=== PATIENT | female | born 1950 | race Caucasian/White ===

== ENCOUNTER → 2017-05-23 10:43 | Outpatient (CLI) | payer MEDICARE, OTHER, SELFPAY ==
[2017-05-23 11:30] VITALS: PULSE 106; PULSE 108; PULSE 110; PULSE 111; PULSE 112; PULSE 113; PULSE 114; PULSE 97; O2SAT 85; O2SAT 88; O2SAT 90; O2SAT 92; O2SAT 93
--- NOTE | 2017-05-23 11:35 | CPS ---
Pt began testing on RA. At 2 minutes SP02 85%. 2L NC continuous applied to pt. Pt rested and recovered to SPO2 92% on 2L continuous, duration of test finished. Patient began and ended test with with a dyspnea louis. scale rating of 3 which she stated is her normal.
--- NOTE | 2017-05-24 07:03 | WT_ITS ---
PSN 6 Minute Walk Test - 6 Minute Walk Test 6 Minute Walk Test: 6 Minute Walk Test PSN:6-Minute Walk Test Start: 05/23/17 11: 30 Freq: Status: Active Protocol: RESP.6MINW Document 05/23/17 11:30 SMB (Rec: 05/23/17 11:44 SMB [id number]) 6 Minute Walk Test Date Performed 05/23/17 Time Performed 11:05 Height 4 ft 11.5 in Weight: 68.039 kg Weight in Pounds 150.[address]: Vargas Colón Assistive device used: None Pre-test Oxygen Delivery Method Room Air Pulse Ox (%) 92 Pulse Rate (60-100 beats/min) 97 1st minute Oxygen Delivery Method Room Air Pulse Ox (%) 90 Pulse Rate (60-100 beats/min) 106 H 2nd minute Oxygen Delivery Method Room Air Pulse Ox (%) 85 Pulse Rate (60-100 beats/min) 114 H 3rd minute Oxygen Flow Rate (L/min) 2 Oxygen Delivery Method Nasal Cannula Pulse Ox (%) 92 Pulse Rate (60-100 beats/min) 111 H 4th minute Oxygen Flow Rate (L/min) 2 Oxygen Delivery Method Nasal Cannula Pulse Ox (%) 88 Pulse Rate (60-100 beats/min) 113 H 5th minute Oxygen Flow Rate (L/min) 2 Oxygen Delivery Method Nasal Cannula Pulse Ox (%) 90 Pulse Rate (60-100 beats/min) 110 H 6th minute Oxygen Flow Rate (L/min) 2 Oxygen Delivery Method Nasal Cannula Pulse Ox (%) 90 Pulse Rate (60-100 beats/min) 112 H Post-test Oxygen Delivery Method Room Air Pulse Ox (%) 93 Pulse Rate (60-100 beats/min) 108 H Dyspnea Louis Scale (0-10) 3 Exertion Louis Scale (6-20) 12 Full Laps Walked 11 Partial Lap, Number of Tiles Walked 18 Total Distance Walked (ft) 667 05/23/17 11:35 Cardiopulmonary Services by Brandee Arredondo Pt began testing on RA. At 2 minutes SP02 85%. 2L NC continuous applied to pt. Pt rested and recovered to SPO2 92% on 2L continuous, duration of test finished. Patient began and ended test with with a dyspnea louis. scale rating of 3 which she stated is her normal. Initialized on 05/23/17 11:35 - END OF NOTE - Interpretation Interpretation: The patient was able to ambulate 667 feet over the course of 6 minutes. The patient initially was 92% on room air, but desaturated in the second minute and required 2 L nasal cannula to finish ambulation. Some tachycardia was noted during testing. These findings are consistent with a respiratory limitation exercise tolerance. - Recommendations Recommendations: The patient requires no supplemental oxygen at rest, but should be using 2 L nasal cannula with activity.
== END ==
PROVIDERS: Family Provider Family Medicine; PCP Family Medicine; Visit Provider Internal Medicine Critical Care Medicine
DX: R00.0 Tachycardia, unspecified (principal)
CPT/HCPCS: 94618

== ENCOUNTER → 2017-09-10 12:48 | Outpatient (CLI) | payer MEDICARE, OTHER, SELFPAY ==
--- NOTE | 2017-09-10 12:53 | BI_ITS ---
MAMMOGRAPHY - BILATERAL SCREENING REASON FOR EXAM: Female, 66 years old. Routine annual screening examination. PERTINENT HISTORY: Non-contributory. TECHNIQUE: Digital bilateral breast cheryle (3D mammographic acquisition) in the CC and MLO projections. 2-D mediolateral oblique (MLO) and craniocaudad (CC) views of both breasts were obtained. CAD: Full Field Digital Mammography with Computer Added Detection was performed. COMPARISON: Comparison is made with prior study dated May 16, 2016 and August 03, 2012. FINDINGS: Breast Composition: The breasts are heterogeneously dense, which may obscure small masses. There are no dominant masses or suspicious calcifications. No other significant abnormalities are identified. There has been no significant change since the prior study. BI/SCREENING MAMM (CAD), BILAT IMPRESSION: Stable bilateral screening mammogram. Yearly follow-up mammogram recommended. (A) ASSESSMENT CATEGORY: BIRADS Category 1: Negative. A letter regarding these results will be sent to the patient by the facility within 30 days. Approximately 10% of breast cancers are not detected by mammography. A normal mammogram should not delay biopsy of a clinically suspicious abnormality. [id number] Electronically Signed: Marty Bobby MD at 13:54 EDT Tel [phone], Service support ,
== END ==
PROVIDERS: Family Provider Family Medicine; PCP Family Medicine; Visit Provider Family Medicine
DX: Z12.31 Encounter for screening mammogram for malignant neoplasm of breast (principal)
CPT/HCPCS: 77063; 77067

== ENCOUNTER → 2018-05-19 12:46 | Outpatient (CLI) | payer MEDICARE, OTHER, SELFPAY ==
[2018-02-25 13:11] VITALS: BMI 32.1
--- NOTE | 2018-05-20 06:41 | PFTCOMP_ITS ---
COMPLETE PULMONARY FUNCTION TEST INTERPRETATION Brief HPI: Patient is a 67 year old female, currently under the care of myself, who presents to [facility] for complete pulmonary function tests secondary to diagnosis of COPD. Respiratory therapist reports good effort and reproducible results. Interpretation: Forced expiration spirometry shows a very severe large airways obstructive ventilatory defect with an FEV1 of 31% predicted. There is no significant bronchodilator response by strict ATS criteria. Spirograms are of good quality and plateau slowly, indicating slowly emptying areas of the lungs. The respiratory flow volume loop shows decreased expiratory flow rates at all lung volumes consistent with airway obstruction. Lung volumes by body plethysmography show a normal total lung capacity at 4.28 L, 106% predicted. FRC and RV are elevated out of proportion. Lung volume measurements are consistent with air-trapping. Diffusion capacity by carbon monoxide is decreased at 44% predicted. The airway resistance is elevated. Compared to previous pulmonary function tests from 06/22/2015, there has been no significant change. Impression: Irreversible very severe large airways obstructive ventilatory defect resulting in air trapping and a symmetric reduction diffusing capacity consistent with advanced COPD.
== END ==
PROVIDERS: Family Provider Family Medicine; PCP Family Medicine; Referring Provider Nurse Practitioner Acute Care; Visit Provider Nurse Practitioner Acute Care
DX: J44.9 Chronic obstructive pulmonary disease, unspecified (principal)
CPT/HCPCS: 94060; 94726; 94729

== ENCOUNTER → 2018-12-23 10:17 | Outpatient (CLI) | payer MEDICARE, OTHER, SELFPAY ==
[2018-11-23 11:16] VITALS: BMI 32.5
--- NOTE | 2018-12-23 10:18 | BD_ITS ---
STUDY: DUAL ENERGY X-RAY ABSORPTIOMETRY / DXA REASON FOR EXAM: Female, 68 years old. The patient is postmenopausal. Loss of height. TECHNIQUE: Bone Mineral Density (BMD) measurements of lumbar spine and bilateral hips were obtained. COMPARISON: Comparison is made with prior study dated May 16, 2016. FINDINGS: Lumbar Spine (L1-L4): g/cm2 (0.789) / T-score (-3.3) / Z-score (-1.6) Findings are suggestive of osteoporosis with a high fracture risk. Increased thoracic kyphosis. Left Femur Total: g/cm2 (0.711) / T-score (-2.4) / Z-score (-0.9) Left Femoral Neck: g/cm2 (0.697) / T-score (-2.5) / Z-score (-0.8) Right Femur Total: g/cm2 (0.725) / T-score (-2.2) / Z-score (-0.8) Right Femoral Neck: g/cm2 (0.693) / T-score (-2.5) / Z-score (-0.8) The T-Scores on the most recent prior examination were: Lumbar Spine (L1-L4): There has been improvement of bone density since the previous examination. Left Femur Total: which represents an improvement of 5.5%. Right Femur Total: which represents a worsening of 2.9%. BD/Dexa Bone Density Study IMPRESSION: The patient is considered osteoporotic as outlined below according to World New Organization (WHO) criteria with a high fracture risk. There has been improvement of bone density since the previous examination. Reference Information: The T-score is the number of standard deviations above or below the standard which is normal for young adults at their peak bone mineral density. The World Health Organization (WHO) interprets the T-scores as follows: Above -1 Normal bone density Between -1 and -2.5 Osteopenia Equal to / or below -2.5 Osteoporosis As a practical clinical guideline, osteopenia may be graded as follows: Mild -1 through -1.5 Moderate -1.6 through -2.0 Severe -2.1 through -2.4 The Z-score is the number of standard deviations above or below age-matched controls. A Z-score of less than -1.5 would be considered abnormal. References: 1. NIH Osteoporosis and Related Bone Diseases http://www.osteo.org 2. International Society for Clinical Densitometry http://www.iscd.org 3. National Osteoporosis Foundation http://www.nof.org Electronically Signed: Marty Bobby, at 13:03 EDT , Service support ,
--- NOTE | 2018-12-23 10:19 | BI_ITS ---
MAMMOGRAPHY - BILATERAL SCREENING REASON FOR EXAM: Female, 68 years old. Routine annual screening examination. PERTINENT HISTORY: Non-contributory. TECHNIQUE: Digital bilateral breast fili (3D mammographic acquisition) in the CC and MLO projections. 2-D mediolateral oblique (MLO) and craniocaudad (CC) views of both breasts were obtained. CAD: Full Field Digital Mammography with Computer Added Detection was performed. COMPARISON: Comparison is made with prior study dated September 10, 2017 and May 16, 2016. FINDINGS: Breast Composition: The breasts are heterogeneously dense, which may obscure small masses. There are no dominant masses or suspicious calcifications. No other significant abnormalities are identified. There has been no significant change since the prior study. BI/SCREEN MAMM (CAD) W/FILI BILAT IMPRESSION: Stable bilateral screening mammogram. Yearly follow-up mammogram recommended. (A) ASSESSMENT CATEGORY: BIRADS Category 1: Negative. A letter regarding these results will be sent to the patient by the facility within 30 days. Approximately 10% of breast cancers are not detected by mammography. A normal mammogram should not delay biopsy of a clinically suspicious abnormality. [id number] Electronically Signed: Marty Bobby, at 8:45 EDT , Service support ,
== END ==
PROVIDERS: Family Provider Family Medicine; PCP Family Medicine; Referring Provider Family Medicine; Visit Provider Family Medicine
DX: Z12.31 Encounter for screening mammogram for malignant neoplasm of breast (principal); Z78.0 Asymptomatic menopausal state; M81.0 Age-related osteoporosis without current pathological fracture
CPT/HCPCS: 77063; 77067; 77080

== ENCOUNTER → 2019-05-25 | Outpatient (CLI) | payer MEDICARE, OTHER, SELFPAY ==
[2019-05-17 10:34] VITALS: BMI 32.5
[2019-05-25 10:00] VITALS: PULSE 100; PULSE 103; PULSE 85; PULSE 86; PULSE 98; PULSE 99; O2SAT 83; O2SAT 90; O2SAT 91; O2SAT 92; O2SAT 94; O2SAT 96
--- NOTE | 2019-05-25 10:36 | CPS ---
Pt came in on 2 lpm pulse dose oxygen. Room air sitting pulse ox 94%. Walk was started while pt on room air. At the 2 min time pt had dropped to 83%. Pt was placed back on 2 lpm pulse dose. Pt recovered to 95%. The remainder of walk was on 2 lpm pulse dose oxygen.
--- NOTE | 2019-05-26 13:53 | WT_ITS ---
PSN 6 Minute Walk Test - 6 Minute Walk Test 6 Minute Walk Test: 6 Minute Walk Test PSN:6-Minute Walk Test Start: 05/25/19 10:31 Freq: Status: Active Protocol: RESP.6MINW Document 05/25/19 10:00 [facility] (Rec: 05/25/19 10:41 [facility] [id number]) 6 Minute Walk Test Date Performed 05/25/19 Time Performed 10:00 Height 4 ft 11 in Weight: 164 lb Weight in Pounds 164.[address]: Vargas Colón Assistive device used: None Pre-test Oxygen Delivery Method Room Air Pulse Ox (%) 94 Pulse Rate (60-100 beats/min) 85 Dyspnea Gaurav Scale (0-10) 0 Exertion Gaurav Scale (6-20) 6 1st minute Oxygen Delivery Method Room Air Pulse Ox (%) 91 Pulse Rate (60-100 beats/min) 98 2nd minute Oxygen Delivery Method Room Air Pulse Ox (%) 83 Pulse Rate (60-100 beats/min) 98 3rd minute Oxygen Flow Rate (L/min) (L/min) 2 Oxygen Delivery Method Nasal Cannula Pulse Ox (%) 94 Pulse Rate (60-100 beats/min) 100 4th minute Oxygen Flow Rate (L/min) (L/min) 2 Oxygen Delivery Method Nasal Cannula Pulse Ox (%) 92 Pulse Rate (60-100 beats/min) 103 H 5th minute Oxygen Flow Rate (L/min) (L/min) 2 Oxygen Delivery Method Nasal Cannula Pulse Ox (%) 96 Pulse Rate (60-100 beats/min) 99 6th minute Oxygen Flow Rate (L/min) (L/min) 2 Oxygen Delivery Method Nasal Cannula Pulse Ox (%) 90 Pulse Rate (60-100 beats/min) 100 Dyspnea Gaurav Scale (0-10) 3 Exertion Gaurav Scale (6-20) 8 Post-test Oxygen Flow Rate (L/min) (L/min) 2 Oxygen Delivery Method Nasal Cannula Pulse Ox (%) 96 Pulse Rate (60-100 beats/min) 86 Full Laps Walked 16 Partial Lap, Number of Tiles Walked 0 Total Distance Walked (ft) 944 05/25/19 10:36 Cardiopulmonary Services by Kary Sarah Pt came in on 2 lpm pulse dose oxygen. Room air sitting pulse ox 94%. Walk was started while pt on room air. At the 2 min time pt had dropped to 83%. Pt was placed back on 2 lpm pulse dose. Pt recovered to 95%. The remainder of walk was on 2 lpm pulse dose oxygen. Initialized on 05/25/19 10:36 - END OF NOTE - Interpretation Interpretation: The patient ambulated 944 feet over the course of 6 minutes beginning on room air without assistive devices. Pretesting oxygen saturation was noted to be 94% on room air. With ambulation, the candy oxygen saturation was 83%. 2 L/min of pulse dose supplemental oxygen was applied and the patient was able to complete the remainder of the test while maintaining appropriate oxygen saturations. - Recommendations Recommendations: 2 L/min of pulse dose supplemental oxygen should be utilized at all times with exertion.
== END | disposition home or self-care (01) ==
LOC: PSN 09:45
PROVIDERS: PCP Family Medicine; Referring Provider Nurse Practitioner Acute Care; Visit Provider Nurse Practitioner Acute Care
DX: J44.9 Chronic obstructive pulmonary disease, unspecified (principal)
CPT/HCPCS: 94618

== ENCOUNTER → 2021-04-03 12:42 | Outpatient (CLI) | payer MEDICARE, OTHER, SELFPAY ==
--- NOTE | 2021-04-03 12:50 | ECHOD_ITS ---
Reason For Study: Cardiomyopathy Procedure This was a 2D Doppler, Color Flow transthoracic echocardiogram. The study was technically difficult. Exam performed in department. Left Ventricle Normal LV size. Left ventricular systolic function is normal. The estimated ejection fraction is 55 %. Diastolic function is indeterminate. No regional wall motion abnormalities noted. Right Ventricle Normal RV size. Normal systolic function. Atria Normal left atrium. Normal right atrium. No doppler evidence for ASD. Mitral Valve There is no mitral annular calcification. Normal mitral valve. Mild (1+) mitral valve insufficiency. Tricuspid Valve Normal tricuspid valve. Trivial tricuspid valve insufficiency. Unable to estimate RV systolic pressure/pulmonary artery pressure due to technically difficult study. Aortic Valve Trisinus/trileaflet aortic valve. Normal aortic valve. Pulmonic Valve The pulmonic valve is not well visualized. Great Vessels The aortic root is not well visualized. Pericardium/Pleural No pericardial effusion. MMode/2D Measurements & Calculations LVIDd: 4.3 cm IVSd: 0.90 cm LA dimension: 3.4 cm LVIDs: 3.4 cm LVPWd: 0.95 cm RVDd: 2.9 cm FS: 21.8 % LAV(MOD-bp): 34.3 ml LA A4 area: 12.4 cm2 RA A4 area: 11.2 cm2 LAV(MOD-bp) Indexed: 20.0 ml/m2 LAV(MOD-sp2): 35.3 ml LAV(MOD-sp4): 29.5 ml Time Measurements MV dec time: 0.30 sec Doppler Measurements & Calculations MV E max nicola: 69.0 cm/sec Lat Peak E' Nicola: 5.6 cm/sec Med Peak E' Nicola: 5.1 cm/sec MV A max nicola: 96.5 cm/sec E/E' lat: 12.4 E/E' med: 13.5 MV E/A: 0.72 MV V2 max: 95.4 cm/sec MV P1/2t max nicola: 75.5 cm/sec Ao V2 max: 110.2 cm/sec MV max P.6 mmHg MV P1/2t: 88.1 msec Ao max P.9 mmHg MV V2 mean: 55.0 cm/sec MV dec slope: 250.9 cm/sec2 MV mean P.4 mmHg MVA(P1/2t): 2.5 cm2 MV V2 VTI: 24.2 cm LV V1 max: 85.7 cm/sec PA V2 max: 87.6 cm/sec LV V1 max P.9 mmHg ECHO/Echo Complete Interpretation Summary The study was technically difficult. Left ventricular systolic function is normal. The estimated ejection fraction is 55 %. Mild (1+) mitral valve insufficiency. Trivial tricuspid valve insufficiency. Unable to estimate RV systolic pressure/pulmonary artery pressure due to techni tor difficult study. Diastolic function is indeterminate. Ordering Physician: Efe Avilez Referring Physician: Danny Quintanilla Performed By: Jose Grimes RCS
== END ==
PROVIDERS: PCP Family Medicine; Referring Provider Internal Medicine Cardiovascular Disease; Visit Provider Internal Medicine Cardiovascular Disease
DX: I42.8 Other cardiomyopathies (principal)
CPT/HCPCS: 93306

== ENCOUNTER → 2021-11-20 | Outpatient (CLI) | payer MEDICARE, OTHER, SELFPAY ==
--- NOTE | 2021-11-20 11:07 | RAD_ITS ---
STUDY: X-RAY - LEFT HAND, ATTENTION THUMB REASON FOR EXAM: Pain around the thumb after a pop on Friday. TECHNIQUE: 3 view(s) of the finger were obtained. COMPARISON: None. FINDINGS: There is osteopenia. Normal carpometacarpal joint. Normal metacarpal. Normal metacarpophalangeal joint. Normal proximal phalanx. Normal distal phalanx. There are small marginal osteophytes and joint space narrowing of the interphalangeal joint. 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 Electronically Signed: Reji Gutierrez MD at 11:59 EDT ,
--- NOTE | 2021-11-20 11:07 | RAD_ITS ---
STUDY: X-RAY - LEFT WRIST REASON FOR EXAM: Pain around the thumb after a pop on Friday. TECHNIQUE: 3 view(s) of the wrist were obtained. COMPARISON: None. FINDINGS: There is osteopenia. Normal visualized distal radius and ulna. Normal radiocarpal articulation. Normal distal radioulnar articulation. Normal carpal bones. Normal carpal articulations. Normal carpometacarpal articulation of the thumb. Normal second through fifth carpometacarpal articulations. Normal visualized metacarpal bones. The soft tissue structures are unremarkable. RAD/Wrist min 3 Views IMPRESSION: Osteopenia. Otherwise, unremarkable x-ray examination of the left wrist. Electronically Signed: Reji Gutierrez MD at 13:21 EDT ,
== END | disposition home or self-care (01) ==
LOC: MTRAD 10:55
PROVIDERS: PCP Family Medicine; Referring Provider Nurse Practitioner Family; Visit Provider Nurse Practitioner Family
DX: M25.532 Pain in left wrist (principal)
CPT/HCPCS: 73110; 73140

== ENCOUNTER → 2022-01-14 | Outpatient (CLI) | payer MEDICARE, OTHER, SELFPAY ==
--- NOTE | 2022-01-15 08:50 | PFT ---
INTRODUCTION: The patient is a 71-year-old female that presents for pulmonary function studies secondary to a diagnosis of COPD. Respiratory therapy reported good patient effort. Bronchodilators were used during testing. INTERPRETATION: Forced expiration spirometry demonstrates the presence of a severe large airways obstructive ventilatory defect. There was no significant response to aerosolized bronchodilators. Spirograms are of fair quality but do not plateau indicating slow emptying of the lungs. Body plethysmography was performed and revealed an elevated TLC and RV, indicative of underlying hyperinflation and air trapping. Diffusing capacity by single breath CO is reduced at 45% of predicted. IMPRESSION: Irreversible severe large airways obstructive ventilatory defect with associated hyperinflation, air trapping and symmetric reduction in diffusing capacity.
== END | disposition home or self-care (01) ==
LOC: PSN 08:11
PROVIDERS: PCP Family Medicine; Referring Provider Internal Medicine Critical Care Medicine; Visit Provider Internal Medicine Critical Care Medicine
DX: J44.9 Chronic obstructive pulmonary disease, unspecified (principal)
CPT/HCPCS: 94060; 94726; 94729

== ENCOUNTER 2022-04-30 07:38 | Day surgery (SDC) | payer MEDICARE, OTHER, SELFPAY ==
[2022-04-30] VITALS (8 sets, daily range): BP systolic 102–113; BP diastolic 49–71; PULSE 97–102; RESP 18–20; TEMP 36.5–37.2; O2SAT 99–100; BMI 34.2
[2022-04-30] MEDS: Lactated Ringers 1,000 ML 15 ML IV (08:04)
--- NOTE | 2022-04-30 08:35 | PCM.HP.BLA ---
History and Physical Date of Admission: 04/30/22 Intake Vital Signs ? 03/28/2213:44 Height 4 ft 11 in Weight: 171 lb 6 oz BMI 34.6 BP 129/75 H Blood Pressure Location Rt brachial Position Sitting Respiration 22 H Pulse 98 Pulse Source NIBP Temp 97.8 F Temp Source Temporal Pulse Oximetry (%) 94 Oxygen Delivery Method nasal canula Oxygen Flow Rate (L/min) 3 Intake Visit Reasons:?POSITICE COLOGUARD Chief Complaint: positive cologuard [employer] Ac[employer] Program Manager Required: No Is patient in pain?: No Allergies doxycycline Allergy (Mild, Verified 03/28/22 13:45) Diarrhea Medications aspirin 81 mg chewable tablet 81 mg PO DAILY@0800 06/19/15 [History Confirmed 03/28/22] cholecalciferol (vitamin D3) 25 mcg (1,000 unit) tablet 1,000 unit PO QDAY 11/24/17 [History Confirmed 03/28/22] albuterol sulfate 90 mcg/actuation aerosol inhaler 2 puff inhalation Q4H PRN PRN shortness of breath or wheezing #18 grams 04/12/20 [Rx Confirmed 03/28/22] fluticasone 500 mcg-salmeterol 50 mcg/dose blistr powdr for inhalation (Advair Diskus) 1 inh inhalation BID #60 ea 01/29/22 [Rx Confirmed 03/28/22] tiotropium bromide 2.5 mcg/actuation mist for inhalation (Spiriva Respimat) 2 puff inhalation QDAY #4 grams 01/29/22 [Rx Confirmed 03/28/22] carvedilol 12.5 mg tablet 12.5 mg PO BID #180 tabs 03/19/22 [Rx Confirmed 03/28/22] furosemide 40 mg tablet (Lasix) 20 mg PO DAILY PRN edema #30 tabs 03/19/22 [Rx Confirmed 03/28/22] losartan 25 mg tablet (Cozaar) 25 mg PO QDAY #90 tabs 03/19/22 [Rx Confirmed 03/28/22] Is last menstrual period known: No Post menopausal: Yes Patient : No PFSH Medical History? Cardiomyopathy Chronic hypoxemic respiratory failure Chronic respiratory failure with hypoxia COPD (chronic obstructive pulmonary disease) Hyperlipidemia Near syncope Nonischemic cardiomyopathy Stage 4 very severe COPD by GOLD classification Thoracic kyphosis Surgical History? H/O: hysterectomy History of appendectomy History of left heart catheterization (LHC) Family History? Father CAD (coronary artery disease)Mother CAD (coronary artery disease)Brother CAD (coronary artery disease)Brother?? CardiomyopathyOther Stage 4 very severe COPD by GOLD classification Social History? Smoking Status:? Former smoker quit date: 04/14/04 pack-years: 34 Tobacco: How many years used:? 34 how long ago did patient quit smoking:? 13 alcohol intake:? current alcohol intake frequency: holidays/special occasions only Alcohol type: wine substance use type:? does not use caffeine:? Yes Type: coffee Number of servings: 3 what type of physical activity do you participate in:? none seatbelt use:? always do you feel safe at home:? Yes HPI HPI HPI: Patient is a 71-year-old female here with a positive Cologuard test.? She denies any blood in her stool or abdominal pain.? She is never had a colonoscopy in the past.? She had a negative Cologuard 2 years ago. ROS General General: Yes weight change and fatigue; No appetite, colon cancer, breast cancer or weakness HEENT HEENT: Yes swollen glands; No difficulty swallowing, eye injury, eye surgery or hoarseness Endo Endocrine: No thyroid disease, diabetes mellitus, thyroid cancer, Hair loss, heat intolerance or cold intolerance Musc Musculoskeletal: Yes back problems and arthritis; No rheumatoid arthritis, gout or joint pain Cardio Cardiovascular: No murmur, pacemaker, heart disease, atrial fibrillation, high blood pressure, heart attack, heart stent, palpitations, shortness of breat with exertion or chest pain Psych Psychiatric: No depression, anxiety or hearing voices Resp Respiratory: Yes shortness of breath, No sleep apnea, No cough, Yes COPD, No asthma, No emphysema and No wheezing Gastro Gastrointestinal: No abdominal pain, No nausea or vomiting, No diarrhea, No constipation, No blood in stool, No acid reflux, No hemorrhoids, No ulcers, No gallbladder problem and No black,tarry stools Shawn Hematologic: No blood thinners, No blood disorders, No bleeding, No anemia and No blood clots Neuro Neurologic: No weakness Exam Const General: cooperative Orientation: alert and oriented x3 HENMT Head: normal to inspection Neck Neck: normal visual inspection and full ROM Chest Chest palpation & inspection: normal inspection of the chest Resp Effort & Inspection: normal respiratory effort Auscultation: clear to auscultation bilaterally Cardio Rate: regular rate Rhythm: regular rhythm GI Inspection: non-distended Palpation: soft and nontender Skin General: no rashes or lesions noted Neuro General: patient alert and patient oriented x3 Extrem General: full ROM Psych Appearance: grossly normal Mental Status: mental status grossly normal Assessment and Plan Assessment and Plan (1) Positive colorectal cancer screening using Cologuard test: ?Status:?Acute ?Plan: The patient had a positive Cologuard and requires colonoscopy for follow-up.? She has never had a colonoscopy in the past. I explained endoscopy in detail to the patient.? I explained the risks including but not limited to stroke or heart attack with anesthesia, perforation of the GI tract, bleeding, infection.? I explained that any of these could necessitate further emergency surgery.? The patient understands and all questions were answered sufficiently.? The patient wishes to proceed with procedure. Rodrigo Brar MD Pager: [facility] [address] [place] [address], [address] [place] [address] Office: I have examined the patient and the H&P has been reviewed. There are no clinical changes since date of exam.
--- NOTE | 2022-04-30 09:08 | OP.COLON_ITS ---
Patient Name: Rosa Isela Wilson Procedure Date: 04/30/2022 8:39 AM Date of : 1950 Age: 71 Procedure: Colonoscopy Indications: Positive Cologuard test Providers: Rodrigo Brar MD Referring MD: Rodrigo Brar MD Medicines: Monitored Anesthesia Care Patient Profile: This is a 71 year old female. Refer to note in patient chart for documentation of history and physical. Last Colonoscopy: none. The patient's first colonoscopy is today. Complications: No immediate complications. Procedure: Pre-Anesthesia Assessment: - Prior to the procedure, a History and Physical was performed, and patient medications and allergies were reviewed. The patient's tolerance of previous anesthesia was also reviewed. The risks and benefits of the procedure and the sedation options and risks were discussed with the patient. All questions were answered, and informed consent was obtained. Prior Anticoagulants: The patient has taken no previous anticoagulant or antiplatelet agents. After reviewing the risks and benefits, the patient was deemed in satisfactory condition to undergo the procedure. After I obtained informed consent, the scope was passed under direct vision. Throughout the procedure, the patient's blood pressure, pulse, and oxygen saturations were monitored continuously. The Colonoscope was introduced through the anus and advanced to the sigmoid colon. The colonoscopy was extremely difficult due to restricted mobility of the colon. The patient tolerated the procedure well. The quality of the bowel preparation was good. Scope In: 8:50:43 AM Scope Out: 9:00:35 AM Total Procedure Duration Time 0 hours 9 minutes 52 seconds Findings: Impression: - No specimens collected. Recommendation: - Discharge patient to home. - Resume previous diet. - Continue present medications. - Repeat colonoscopy in 6 months because the examination was incomplete. - Return to GI office. Procedure Code(s): --- Professional --- 27884, 53, Colonoscopy, flexible; diagnostic, including collection of specimen(s) by brushing or washing, when performed (separate procedure) Diagnosis Code(s): --- Professional --- R19.5, Other fecal abnormalities CPT copyright 2017 [employer]. All rights reserved. The codes documented in this report are preliminary and upon paint mixer machine review may be revised to meet current compliance requirements. Rodrigo Brar MD 04/30/2022 9:07:41 AM This report has been signed electronically. Number of Addenda: 0 Note Initiated On: 04/30/2022 8:39 AM
--- NOTE | 2022-04-30 09:09 | OP.CCLET_ITS ---
04/30/2022 Paulino Quintanilla [address] [place] [address] Re : Colonoscopy procedure for Rosa Isela Wilson Dear Dr. Quintanilla This procedure was performed on Saturday, April 30, 2022. My impressions and recommendations are as follows: Impressions : - No specimens collected. Recommendations : - Discharge patient to home. - Resume previous diet. - Continue present medications. - Repeat colonoscopy in 6 months because the examination was incomplete. - Return to GI office. My findings are described in the full procedure note, which is enclosed. If I can be of further assistance, please feel free to contact me at Doctor phone number(s): , Work: . Sincerely, Rodrigo Brar MD 04/30/2022 9:07:41 AM This report has been signed electronically.
--- NOTE | 2022-04-30 13:33 | RAD_ITS ---
STUDY: BARIUM ENEMA. REASON FOR EXAM: Female, 71 years old. Unable to get past sigmoid on scope FLUOROSCOPY TIME (if supplied): ( 1 minute and 5 seconds. ) minutes/seconds. 13 images were obtained. TECHNIQUE: A hvac estimator view was obtained. Following this, barium was introduced retrograde through the rectum. The entire colon was opacified. COMPARISON: None. FINDINGS: There is evidence of sigmoid diverticulosis. No evidence of sigmoid diverticulitis. There is redundancy of the sigmoid colon. There is no evidence of obstruction to the antegrade or retrograde flow of barium. RAD/Barium Enema No Air Cont IMPRESSION: Redundancy of the sigmoid colon. Sigmoid diverticulosis without evidence of diverticulitis at this time. Electronically Signed: Marty Bobby MD at 14:41 EST ,
== END 2022-04-30 10:14 | disposition home or self-care (01) ==
LOC: EN 07:39 → AC 07:40
PROVIDERS: PCP Family Medicine; Referring Provider Surgery; Visit Provider Surgery
PROC: 0DJD8ZZ Inspection of Lower Intestinal Tract, Via Natural or Artificial Opening Endoscopic (ICD-10-PCS; CPT 45378; principal; 2022-04-30 08:40)
DX: R19.5 Other fecal abnormalities (principal); J44.9 Chronic obstructive pulmonary disease, unspecified; I42.8 Other cardiomyopathies; Z78.0 Asymptomatic menopausal state; E78.5 Hyperlipidemia, unspecified; Z79.82 Long term (current) use of aspirin; Z79.899 Other long term (current) drug therapy; Z87.891 Personal history of nicotine dependence
CPT/HCPCS: 45330; 74270; J7120; J2405

== ENCOUNTER → 2023-08-19 | Outpatient (CLI) | payer MEDICARE, OTHER, SELFPAY ==
--- NOTE | 2023-08-19 14:08 | BI_ITS ---
MAMMOGRAPHY - BILATERAL SCREENING REASON FOR EXAM: Female, 72 years old. Routine annual screening examination. PERTINENT HISTORY: Non-contributory. TECHNIQUE: Digital bilateral breast fili (3D mammographic acquisition) in the CC and MLO projections. 2-D mediolateral oblique (MLO) and craniocaudad (CC) views of both breasts were obtained. CAD: Full Field Digital Mammography with Computer Added Detection was performed. COMPARISON: Comparison is made with prior study dated December 23, 2018 and September 10, 2017. FINDINGS: Breast Composition: There are scattered areas of fibroglandular density. There are no dominant masses or suspicious calcifications. No other significant abnormalities are identified. There has been no significant change since the prior study. BI/SCRN MAMM (CAD)W/FILI BILAT IMPRESSION: Stable bilateral screening mammogram. Yearly follow-up mammogram recommended. (A) ASSESSMENT CATEGORY: BIRADS Category 1: Negative. A letter regarding these results will be sent to the patient by the facility within 30 days. Approximately 10% of breast cancers are not detected by mammography. A normal mammogram should not delay biopsy of a clinically suspicious abnormality. [id number] Electronically Signed: Marty Bobby MD at 15:14 EDT ,
--- NOTE | 2023-08-19 14:14 | BD_ITS ---
STUDY: DUAL ENERGY X-RAY ABSORPTIOMETRY / DXA REASON FOR EXAM: Female, 72 years old. [id number] TECHNIQUE: Bone Mineral Density (BMD) measurements of lumbar spine and bilateral hips were obtained. COMPARISON: Comparison is made with prior study dated December 23, 2018. FINDINGS: Lumbar Spine (L1-L4): g/cm2 (0.654) / T-score (-3.6) / Z-score (-1.2) Findings are suggestive of osteoporosis with a high fracture risk. Left Femur Total: g/cm2 (0.667) / T-score (-2.3) / Z-score (-0.5) Left Femoral Neck: g/cm2 (0.558) / T-score (-2.6) / Z-score (-0.6) Right Femur Total: g/cm2 (0.656) / T-score (-2.3) / Z-score (-0.6) Right Femoral Neck: g/cm2 (0.568) / T-score (-2.5) / Z-score (-0.5) The T-Scores on the most recent prior examination were: Lumbar Spine (L1-L4): There has been worsening of bone density since the previous examination. Left Femur Total: which represents an improvement of 2%. Right Femur Total: which represents a worsening of 1.7%. BD/Dexa Bone Density Study IMPRESSION: The patient is considered osteoporotic as outlined below according to World New Organization (WHO) criteria with a high fracture risk. There has been worsening of bone density since the previous examination. Reference Information: The T-score is the number of standard deviations above or below the standard which is normal for young adults at their peak bone mineral density. The World Health Organization (WHO) interprets the T-scores as follows: Above -1 Normal bone density Between -1 and -2.5 Osteopenia Equal to / or below -2.5 Osteoporosis As a practical clinical guideline, osteopenia may be graded as follows: Mild -1 through -1.5 Moderate -1.6 through -2.0 Severe -2.1 through -2.4 The Z-score is the number of standard deviations above or below age-matched controls. A Z-score of less than -1.5 would be considered abnormal. References: 1. NIH Osteoporosis and Related Bone Diseases www osteo.org 2. International Society for Clinical Densitometry www iscd.org 3. National Osteoporosis Foundation www nof.org Electronically Signed: Marty Bobby MD at 10:00 EDT ,
== END | disposition home or self-care (01) ==
LOC: OPBD 14:07
PROVIDERS: PCP Family Medicine; Referring Provider Family Medicine; Visit Provider Family Medicine
DX: Z00.00 Encounter for general adult medical examination without abnormal findings (principal); Z12.31 Encounter for screening mammogram for malignant neoplasm of breast; Z78.0 Asymptomatic menopausal state
CPT/HCPCS: 77063; 77067; 77080

== ENCOUNTER → 2023-11-21 | Outpatient (CLI) | payer MEDICARE, OTHER, SELFPAY ==
[2023-11-21 12:26] LABS: Absolute Lymphocyte Count 1.69 X10^3/uL (0.83-4.51); Absolute Neutrophil Count 5.3 X10^3/uL (2.0-7.7); Basophil# 0.07 X10^3/uL; Basophil% 0.9 % (0-1); Eosinophil# 0.19 X10^3/uL; Eosinophils% 2.3 % (0-5); Hematocrit 34.3 % (37-47); Hemoglobin 10.5 g/dL (12.0-15.0); Lymphocyte # 1.69 X10^3/ul (0.83-4.51); Lymphocyte % 20.8 % (19-41); Mean Corp Hgb Conc 30.6 g/dL (32-36); Mean Corpuscular Hgb 28.8 pg (27.0-32.0); Mean Platelet Vol. 9.7 fl (6.2-12.0); Monocyte# 0.81 X10^3/uL; NRBC Flagged by Analyzer 0 % (0-5); Neutrophil # 5.33 X10^3/uL (2.7-7.7); Neutrophil % 65.6 % (47-70); Platelet Count 279 K/mm3 (150-450); RBC Distribution Width CV 13.5 % (11.6-14.6); RBC Distribution Width SD 46.4 fl (35.1-43.9); Red Blood Count 3.65 M/mm3 (4.2-5.4); White Blood Count 8.1 K/mm3 (4.4-11.0)
[2023-11-21 13:21] LABS: ALB/GLOB Ratio 0.8 RATIO (0.9-2.4); AST(SGOT) 25 U/L (15-37); Alanine Aminotransfer ALT/SGPT 26 U/L (13-56); Albumin, Serum 3.5 g/dL (3.2-5.0); Alkaline Phosphatase 101 U/L (45-117); Anion Gap 7 (5-15); BUN 22 mg/dL (7-18); BUN/Creat Ratio 22.7 RATIO (10-20); Calcium,Total 9.5 mg/dL (8.5-10.1); Chloride 99 mmol/L (98-107); Cholesterol 212 mg/dL (200); Creatinine, Serum 0.97 mg/dL (0.55-1.02); EST Glomerular Filtration Rate 60 mL/min (>60); Est Glom Filt Rate - Afr Amer 72 mL/min (>60); Globulin 4.6 g/dL (2.2-4.2); Glucose 142 mg/dL (74-106); High Density Lipoprotein 88 mg/dL; Potassium 4.4 mmol/L (3.5-5.1); Protein, Total 8.1 g/dL (6.4-8.2); Sodium Level 137 mmol/L (136-145); Triglycerides 71 mg/dL; Very Low Density Lipoprotein 14 mg/dL (5-40)
== END | disposition home or self-care (01) ==
LOC: LAB 11:52
PROVIDERS: PCP Family Medicine; Referring Provider Physician Assistant Medical; Visit Provider Physician Assistant Medical
DX: R06.02 Shortness of breath (principal); I42.8 Other cardiomyopathies; E78.5 Hyperlipidemia, unspecified; R53.83 Other fatigue
CPT/HCPCS: 36415; 80053; 80061; 84443; 85025

== ENCOUNTER → 2023-12-17 | Outpatient (CLI) | payer MEDICARE, OTHER, SELFPAY | END | disposition home or self-care (01) | LOC: LABSPEC 13:15 | PROVIDERS: PCP Family Medicine; Referring Provider Nurse Practitioner Family; Visit Provider Nurse Practitioner Family | DX: L30.9 Dermatitis, unspecified (principal) | CPT/HCPCS: 87070; 87077; 87186; 87205 ==

== ENCOUNTER → 2024-01-08 | Outpatient (CLI) | payer MEDICARE, OTHER, SELFPAY ==
[2024-01-08 12:34] LABS: Absolute Lymphocyte Count 1.66 X10^3/uL (0.83-4.51); Absolute Neutrophil Count 4.9 X10^3/uL (2.0-7.7); Basophil# 0.05 X10^3/uL; Basophil% 0.7 % (0-1); Eosinophil# 0.25 X10^3/uL; Eosinophils% 3.3 % (0-5); Hematocrit 35.6 % (37-47); Hemoglobin 10.8 g/dL (12.0-15.0); Lymphocyte # 1.66 X10^3/ul (0.83-4.51); Lymphocyte % 21.6 % (19-41); Mean Corp Hgb Conc 30.3 g/dL (32-36); Mean Corpuscular Hgb 28.7 pg (27.0-32.0); Mean Corpuscular Volume 94.7 fL (81-99); Mean Platelet Vol. 10.9 fl (6.2-12.0); Monocyte# 0.75 X10^3/uL; Monocyte% 9.8 % (0-10); NRBC Flagged by Analyzer 0 % (0-5); Neutrophil # 4.94 X10^3/uL (2.7-7.7); Neutrophil % 64.3 % (47-70); POSITIVE COUNT YES; RBC Distribution Width CV 13.8 % (11.6-14.6); RBC Distribution Width SD 47.7 fl (35.1-43.9); Red Blood Count 3.76 M/mm3 (4.2-5.4); White Blood Count 7.7 K/mm3 (4.4-11.0)
[2024-01-08 12:55] LABS: AST(SGOT) 23 U/L (15-37); Alanine Aminotransfer ALT/SGPT 25 U/L (13-56); Albumin, Serum 3.6 g/dL (3.2-5.0); Alkaline Phosphatase 94 U/L (45-117); Bilirubin, Direct 0.09 mg/dL (0.00-0.30); Globulin 4.5 g/dL (2.2-4.2); Protein, Total 8.1 g/dL (6.4-8.2)
[2024-01-08 13:10] LABS: Differential Indicated SCAN CRITERIA MET
[2024-01-08 13:11] LABS: Platelet Estimate ADEQUATE (ADEQ)
[2024-01-08 13:35] LABS: Hepatitis B Surface Antibody Non-Reactive; Hepatitis B Surface Antigen Non-Reactive (Nonreactive); Hepatitis C Antibody Non-Reactive (Nonreactive)
[2024-01-12 13:08] LABS: Hepatitis B Core AB IgM Negative (Negative); QNTFERON TB Mitogen Value > 10.00 IU/mL (.); QNTFERON TB Nil Value 0 IU/mL (.); QNTFERON TB1+ Ag Value 0 IU/mL (.); QNTFERON TB2+ Ag Value 0.03 IU/mL (.); QNTIFERON TB Positive Criteria Negative (Negative)
== END | disposition home or self-care (01) ==
LOC: LAB 11:54
PROVIDERS: PCP Family Medicine; Referring Provider Nurse Practitioner Family; Visit Provider Nurse Practitioner Family
DX: L40.1 Generalized pustular psoriasis (principal); Z79.899 Other long term (current) drug therapy
CPT/HCPCS: 36415; 80076; 85025; 86480; 86705; 86706; 86803; 87340

== ENCOUNTER → 2024-03-23 | Outpatient (CLI) | payer MEDICARE, OTHER, SELFPAY | END | disposition home or self-care (01) | LOC: MTLAB 14:11 | PROVIDERS: PCP Family Medicine; Referring Provider Nurse Practitioner Family; Visit Provider Nurse Practitioner Family | DX: L40.0 Psoriasis vulgaris (principal); L40.1 Generalized pustular psoriasis; Z79.899 Other long term (current) drug therapy ==

== ENCOUNTER → 2024-03-24 | Outpatient (CLI) | payer MEDICARE, OTHER, SELFPAY ==
--- NOTE | 2024-03-24 12:41 | ECHOD_ITS ---
Reason For Study: CHF Procedure This was a 2D Doppler, Color Flow transthoracic echocardiogram. Exam performed in department. Left Ventricle Normal LV size. Stage 1 diastolic dysfunction. The left ventricular ejection fraction is 40 %. There is mild global hypokinesis of the left ventricle. Right Ventricle Normal RV size. Normal systolic function. Tricuspid Valve Normal tricuspid valve. Mild tricuspid valve insufficiency. Pulmonary artery systolic pressure is 37 mmHg. Great Vessels Normal aortic root. The pulmonary artery is normal size. Inferior vena cava collapse with respiration. Pericardium/Pleural No pericardial effusion. MMode/2D Measurements & Calculations LVIDd: 4.3 cm IVSd: 0.80 cm Ao root diam: 2.8 cm LVIDs: 3.7 cm LVPWd: 0.78 cm RVDd: 3.5 cm FS: 14.5 % LAV(MOD-bp): 48.2 ml SV(MOD-sp4): 19.3 ml LVAd ap4: 22.0 cm2 LAV(MOD-bp) Indexed: 27.9 ml/m2 LVLd ap4: 6.9 cm SI(MOD-sp4): 11.2 ml/m2 LAV(MOD-sp2): 55.3 ml EDV(MOD-sp4): 58.7 ml LAV(MOD-sp4): 38.3 ml EDV(sp4-el): 59.4 ml LVAs ap4: 17.2 cm2 LVLs ap4: 6.4 cm ESV(MOD-sp4): 39.4 ml ESV(sp4-el): 39.2 ml EF(MOD-sp4): 32.9 % EF(sp4-el): 34.1 % SV(sp4-el): 20.3 ml LA A4 area: 15.9 cm2 LA dimension(2D): 3.5 cm RA A4 area: 14.5 cm2 TAPSE: 2.0 cm Time Measurements MV dec time: 0.16 sec Doppler Measurements & Calculations MV E max nicola: 79.5 cm/sec Lat Peak E' Nicola: 7.3 cm/sec Med Peak E' Nicola: 7.3 cm/sec MV A max nicola: 101.4 cm/sec E/E' lat: 11.0 E/E' med: 10.8 MV E/A: 0.78 MV V2 max: 115.4 cm/sec MV P1/2t max nicola: 104.6 cm/sec Ao V2 max: 114.9 cm/sec MV max P.3 mmHg MV P1/2t: 62.2 msec Ao max P.3 mmHg MV V2 mean: 64.0 cm/sec MV dec slope: 492.3 cm/sec2 Ao V2 mean: 84.7 cm/sec MV mean P.0 mmHg Ao mean P.2 mmHg MV V2 VTI: 28.4 cm MVA(P1/2t): 3.5 cm2 Ao V2 VTI: 28.6 cm AV (velocity ratio): 0.88 LV V1 max: 105.9 cm/sec PA V2 max: 68.1 cm/sec TR max nicola: 293.1 cm/sec LV V1 max P.5 mmHg TR max P.4 mmHg LV V1 mean P.5 mmHg LV V1 mean: 73.9 cm/sec LV V1 VTI: 25.1 cm ECHO/Echo Complete Interpretation Summary Normal LV size. There is mild global hypokinesis of the left ventricle. Stage 1 diastolic dysfunction. The left ventricular ejection fraction is 40 %. Compared to previous study, the left ventricular systolic function has worsened .. Ordering Physician: Mague Russell Referring Physician: Mague Russell Performed By: Jose Grimes RCS
== END | disposition home or self-care (01) ==
LOC: CVS 12:41
PROVIDERS: PCP Family Medicine; Referring Provider Physician Assistant Medical; Visit Provider Physician Assistant Medical
DX: R06.02 Shortness of breath (principal); I50.9 Heart failure, unspecified
CPT/HCPCS: 93306

== ENCOUNTER 2024-04-02 13:59 | Outpatient (CLI) | payer MEDICARE, OTHER, SELFPAY ==
[2024-04-02 17:34] LABS: Hematocrit 33.8 % (37-47); Hemoglobin 10.4 g/dL (12.0-15.0)
[2024-04-02 17:35] LABS: Absolute Neutrophil Count 5.5 X10^3/uL (2.0-7.7); Basophil# 0.04 X10^3/uL; Basophil% 0.5 % (0-1); Eosinophil# 0.17 X10^3/uL; Eosinophils% 2.1 % (0-5); Hemoglobin 10.6 g/dL (12.0-15.0); Lymphocyte % 20.7 % (19-41); Mean Corp Hgb Conc 31.2 g/dL (32-36); Mean Corpuscular Hgb 29.1 pg (27.0-32.0); Mean Corpuscular Volume 93.4 fL (81-99); Mean Platelet Vol. 10.2 fl (6.2-12.0); Monocyte# 0.74 X10^3/uL; NRBC Flagged by Analyzer 0 % (0-5); Neutrophil # 5.53 X10^3/uL (2.7-7.7); Neutrophil % 67.3 % (47-70); Platelet Count 276 K/mm3 (150-450); RBC Distribution Width CV 13.6 % (11.6-14.6); RBC Distribution Width SD 46.4 fl (35.1-43.9); RET-HE 32.2 pg (30-35); Red Blood Count 3.64 M/mm3 (4.2-5.4); Reticulocyte Count 1.36 % (0.5-1.5); White Blood Count 8.2 K/mm3 (4.4-11.0)
[2024-04-02 18:01] LABS: Anion Gap 7 (5-15); BUN 27 mg/dL (7-18); BUN/Creat Ratio 25.7 RATIO (10-20); Calcium,Total 10.1 mg/dL (8.5-10.1); Chloride 94 mmol/L (98-107); Creatinine, Serum 1.05 mg/dL (0.55-1.02); EST Glomerular Filtration Rate 54 mL/min (>60); Est Glom Filt Rate - Afr Amer 66 mL/min (>60); Glucose 104 mg/dL (74-106); Potassium 3.9 mmol/L (3.5-5.1); Sodium Level 133 mmol/L (136-145)
[2024-04-02 18:10] LABS: Ferritin 111 ng/mL (8-252); Iron 83 ug/dL (50-170); Iron Binding Capacity,Total 379 ug/dL (250-450); PERCENT IRON SATURATION 21.9 % (15.0-55.0)
== END 2024-04-02 23:59 | disposition home or self-care (01) ==
LOC: MTLAB 14:00
PROVIDERS: Physician Assistant Medical; PCP Family Medicine; Referring Provider Nurse Practitioner Family; Visit Provider Nurse Practitioner Family
DX: L40.0 Psoriasis vulgaris (principal); L40.1 Generalized pustular psoriasis; R06.02 Shortness of breath; D64.9 Anemia, unspecified; Z79.899 Other long term (current) drug therapy
CPT/HCPCS: 36415; 80048; 82728; 83540; 83550; 85014; 85018; 85025; 85045

== ENCOUNTER → 2024-05-12 | Outpatient (CLI) | payer MEDICARE, OTHER, SELFPAY ==
[2024-05-12 19:58] LABS: Anion Gap 6 (5-15); BUN 19 mg/dL (7-18); BUN/Creat Ratio 21.3 RATIO (10-20); Calcium,Total 9.6 mg/dL (8.5-10.1); Chloride 98 mmol/L (98-107); Creatinine, Serum 0.89 mg/dL (0.55-1.02); EST Glomerular Filtration Rate 66 mL/min (>60); Est Glom Filt Rate - Afr Amer 79 mL/min (>60); Glucose 101 mg/dL (74-106); Potassium 4.3 mmol/L (3.5-5.1); Sodium Level 135 mmol/L (136-145)
== END | disposition home or self-care (01) ==
LOC: MTLAB 14:51
PROVIDERS: PCP Family Medicine; Referring Provider Physician Assistant Medical; Visit Provider Physician Assistant Medical
DX: R06.02 Shortness of breath (principal)
CPT/HCPCS: 36415; 80048

== ENCOUNTER → 2024-07-07 | Outpatient (CLI) | payer MEDICARE, OTHER, SELFPAY ==
--- NOTE | 2024-07-07 09:45 | ECHOL_ITS ---
Reason For Study Reason For Study: CHF Procedure This was a limited 2D transthoracic echocardiogram. Exam performed in department. Left Ventricle Normal LV size. The left ventricular ejection fraction is 45 %. There is mild to moderate global hypokinesis of the left ventricle. Atria Normal left atrium. Normal right atrium. Mitral Valve Normal mitral valve. Tricuspid Valve Normal tricuspid valve. Pericardium/Pleural No pericardial effusion. MMode/2D Measurements & Calculations LVIDd: 4.6 cm IVSd: 0.70 cm Ao root diam: 3.2 cm LVIDs: 3.4 cm LVPWd: 0.79 cm RVDd: 2.5 cm FS: 27.0 % LAV(MOD-bp): 48.1 ml LVAd ap4: 23.7 cm2 LVAd ap2: 22.1 cm2 LAV(MOD-bp) Indexed: 27.8 ml/m2 LVLd ap4: 6.7 cm LVLd ap2: 6.8 cm LAV(MOD-sp2): 48.1 ml EDV(MOD-sp4): 66.5 ml EDV(MOD-sp2): 60.5 ml LAV(MOD-sp4): 43.3 ml EDV(sp4-el): 71.0 ml EDV(sp2-el): 61.1 ml LVAs ap4: 15.6 cm2 LVAs ap2: 14.9 cm2 LVLs ap4: 5.6 cm LVLs ap2: 5.7 cm ESV(MOD-sp4): 35.4 ml ESV(MOD-sp2): 33.3 ml ESV(sp4-el): 37.0 ml ESV(sp2-el): 33.2 ml EF(MOD-sp4): 46.8 % EF(MOD-sp2): 45.1 % EF(sp4-el): 47.8 % SV(MOD-sp4): 31.1 ml SV(MOD-sp2): 27.3 ml SV(sp4-el): 34.0 ml SI(MOD-sp4): 18.0 ml/m2 SI(MOD-sp2): 15.8 ml/m2 LA dimension(2D): 3.9 cm LA A4 area: 15.1 cm2 RA A4 area: 12.0 cm2 ECHO/Echo, Limited Study Interpretation Summary Normal LV size. The left ventricular ejection fraction is 45 %. There is mild to moderate global hypokinesis of the left ventricle. Compared to previous study, the left ventricular systolic function is the same. . Ordering Physician: Mague Russell Referring Physician: Danny Quintanilla Performed By: Albertina Dennis RDCS, RVT
== END | disposition home or self-care (01) ==
LOC: CVS 09:45
PROVIDERS: PCP Family Medicine; Referring Provider Physician Assistant Medical; Visit Provider Physician Assistant Medical
DX: I42.8 Other cardiomyopathies (principal)
CPT/HCPCS: 93308

== ENCOUNTER → 2024-08-24 | Outpatient (CLI) | payer MEDICARE, OTHER, SELFPAY | END | disposition home or self-care (01) | LOC: PSN 12:01 | PROVIDERS: PCP Family Medicine; Referring Provider Nurse Practitioner Acute Care; Visit Provider Nurse Practitioner Acute Care | DX: R06.02 Shortness of breath (principal) | CPT/HCPCS: 94060; 94726; 94729 ==

== ENCOUNTER → 2024-08-25 | Outpatient (CLI) | payer MEDICARE, OTHER, SELFPAY ==
[2024-08-25 13:40] VITALS: PULSE 104; PULSE 105; PULSE 106; PULSE 114; PULSE 86; PULSE 89; PULSE 99; O2SAT 84; O2SAT 86; O2SAT 87; O2SAT 88; O2SAT 89; O2SAT 92; O2SAT 95; O2SAT 96
--- NOTE | 2024-08-25 13:44 | CPS ---
Patient wears 3-4 lpm pulse dose oxygen at home. Pre-testing room air reading SpO2 87%. Placed patient on home O2 tank at 3 lpm pulse dose to start testing, SpO2 93%. By the first minute SpO2 86%, stopped patient and recovered on 4 lpm pulse dose, SpO2 92%. At the third minute SpO2 84% and patient stated she was severely short of breath. Placed patient on 3 lpm O2 continuous flow, SpO2 recovered to 96%. Patient walked the final 3 minutes on 3 lpm continuous O2 just dropping to 88% at the end of testing.
--- NOTE | 2024-08-27 11:13 | WT_ITS ---
PSN 6 Minute Walk Test 6 Minute Walk Test 6 Minute Walk Test: 6 Minute Walk Test PSN:6-Minute Walk Test Start: 08/25/24 13:40 Freq: Status: Active Protocol: [id number] Document 08/25/24 13:40 HARSHAAMINTA (Rec: 08/25/24 13:47 DAVIDMYRAON [id number]) 6 Minute Walk Test Date Performed 08/25/24 Time Performed 12:30 Height 4 ft [address]: Flaquita Gallagher [employer] Assistive device None used: Pre-test Oxygen Delivery Room Air Method Pulse Ox (%) 87 Pulse Rate (60-100 89 beats/min) Dyspnea Gaurav Scale ( 2 0-10) Exertion Gaurav Scale 6 (6-20) 1st minute Oxygen Flow Rate (L/ 3 min) (L/min) Oxygen Delivery Nasal Cannula Method Pulse Ox (%) 86 Pulse Rate (60-100 106 H beats/min) 2nd minute Oxygen Flow Rate (L/ 4 min) (L/min) Oxygen Delivery Nasal Cannula Method Pulse Ox (%) 89 Pulse Rate (60-100 105 H beats/min) 3rd minute Oxygen Flow Rate (L/ 4 min) (L/min) Oxygen Delivery Nasal Cannula Method Pulse Ox (%) 84 Pulse Rate (60-100 114 H beats/min) Dyspnea Gaurav Scale ( 5 0-10) 4th minute Oxygen Flow Rate (L/ 3 min) (L/min) Oxygen Delivery Nasal Cannula Method Pulse Ox (%) 95 Pulse Rate (60-100 99 beats/min) 5th minute Oxygen Flow Rate (L/ 3 min) (L/min) Oxygen Delivery Nasal Cannula Method Pulse Ox (%) 92 Pulse Rate (60-100 104 H beats/min) 6th minute Oxygen Flow Rate (L/ 3 min) (L/min) Oxygen Delivery Nasal Cannula Method Pulse Ox (%) 88 Pulse Rate (60-100 106 H beats/min) Dyspnea Gaurav Scale ( 4 0-10) Exertion Gaurav Scale 14 (6-20) Post-test Oxygen Flow Rate (L/ 3 min) (L/min) Oxygen Delivery Nasal Cannula Method Pulse Ox (%) 96 Pulse Rate (60-100 86 beats/min) Full Laps Walked 16 Partial Lap, Number 36 of Tiles Walked Total Distance 980 Walked (ft) 08/25/24 13:44 Cardiopulmonary Services by Olyphant,Zaria Patient wears 3-4 lpm pulse dose oxygen at home. Pre-testing room air reading SpO2 87%. Placed patient on home O2 tank at 3 lpm pulse dose to start testing, SpO2 93%. By the first minute SpO2 86%, stopped patient and recovered on 4 lpm pulse dose, SpO2 92%. At the third minute SpO2 84% and patient stated she was severely short of breath. Placed patient on 3 lpm O2 continuous flow, SpO2 recovered to 96%. Patient walked the final 3 minutes on 3 lpm continuous O2 just dropping to 88% at the end of testing. Initialized on 08/25/24 13:44 - END OF NOTE Interpretation Interpretation: The patient ambulated 980 feet over the course of 6 minutes beginning on room air without assistive devices. Pretesting oxygen saturation was noted to be 87% on room air. 3 L/min of pulsed dose supplemental oxygen was applied with improvement in saturations to 93%. However, with ambulation, the patient continued to desaturate on pulsed dose supplemental oxygen and required transition to 3 L/min continuous flow to maintain appropriate saturations with exertion. Recommendations Recommendations: 3 L/min of continuous flow supplemental oxygen should be utilized both at rest and with exertion.
== END | disposition home or self-care (01) ==
LOC: PSN 12:09
PROVIDERS: PCP Family Medicine; Referring Provider Nurse Practitioner Acute Care; Visit Provider Nurse Practitioner Acute Care
DX: R06.02 Shortness of breath (principal)
CPT/HCPCS: 94618

== ENCOUNTER → 2024-12-17 | Outpatient (CLI) | payer MEDICARE, OTHER, SELFPAY ==
[2024-12-17 15:33] LABS: Hematocrit 35.4 % (37-47); Hemoglobin 10.8 g/dL (12.0-15.0); Immature Granulocytes Count 0.030 X10^3/uL (0.0-0.0); Mean Corp Hgb Conc 30.5 g/dL (32-36); Mean Corpuscular Volume 94.4 fL (81-99); Mean Platelet Vol. 10.0 fl (6.2-12.0); NRBC Flagged by Analyzer 0 % (0-5); Platelet Count 276 K/mm3 (150-450); RBC Distribution Width CV 14.1 % (11.6-14.6); RBC Distribution Width SD 48.8 fl (35.1-43.9); Red Blood Count 3.75 M/mm3 (4.2-5.4); White Blood Count 8.2 K/mm3 (4.4-11.0)
[2024-12-17 15:48] LABS: AST(SGOT) 25 U/L (<=31); Alanine Aminotransfer ALT/SGPT 20 U/L (<=34); Albumin, Serum 4.1 g/dL (3.4-4.8); Alkaline Phosphatase 77 U/L (35-104); Bilirubin, Direct 0.12 mg/dL (0.00-0.30); Globulin 3.7 g/dL (2.2-4.2)
[2024-12-21 07:07] LABS: QNTFERON TB Mitogen Value > 10.00 IU/mL (.); QNTFERON TB Nil Value 0.06 IU/mL (.); QNTFERON TB1+ Ag Value 0.05 IU/mL (.); QNTFERON TB2+ Ag Value 0.06 IU/mL (.); QNTIFERON TB Positive Criteria Negative (Negative)
== END | disposition home or self-care (01) ==
LOC: MTLAB 11:26
PROVIDERS: PCP Family Medicine; Referring Provider Nurse Practitioner Family; Visit Provider Nurse Practitioner Family
DX: Z79.899 Other long term (current) drug therapy (principal)
CPT/HCPCS: 36415; 80076; 85025; 86480